=== PATIENT | female | born 1970 | race Caucasian/White ===

== ENCOUNTER 2016-08-07 21:19 | Emergency (ER) | payer BC ==
[~2016-08-07] VITALS: Ht 172.7 cm; Wt 72.6 kg
[2016-08-07 21:38] VITALS: BP_SYST 112
[2016-08-07] MEDS ORDERED: KETOROLAC TROMETHAMINE 60 MG/2 ML VIAL IM ONE (22:15)
[2016-08-07] MEDS ORDERED: DIPH-TET-PERTUS Vaccine 0.5 ML VIAL (ADACEL) IM ONE (22:15)
[2016-08-07] MEDS ORDERED: cefTRIAXone 1 GM in LIDOCAINE 1%, 20 ML MDV 2.1 ML IM ONE (22:15)
[2016-08-07 23:33] VITALS: BP_SYST 141
== END 2016-08-07 23:32 | disposition short-term general hospital (02) ==
LOC: SED 21:19
DX: S01.511A Laceration without foreign body of lip, initial encounter (principal); W01.0XXA Fall on same level from slipping, tripping and stumbling without subsequent striking against object, initial encounter; Y93.89 Activity, other specified; Y99.8 Other external cause status; Y92.89 Other specified places as the place of occurrence of the external cause
CPT/HCPCS: 90471; 90715; 96372; 99285; J0696; J1885; J2001